=== PATIENT | male | born 1980 | race Caucasian/White ===

== ENCOUNTER 2025-06-02 02:55 | Emergency (ER) | payer SELFPAY ==
[~2025-06-02] VITALS: Ht 167.6 cm; Wt 70.7 kg
[2025-06-02] MEDS: METHYLPREDNISOLONE SOD SUCC 125MG/2ML (ACT-O-VIAL) IV ONE (03:31)
[2025-06-02] MEDS: ALBUTEROL (0.083%) 2.5MG/3ML NEB HHN ONE (03:37)
[2025-06-02] MEDS: IPRATROPIUM BROMIDE (0.02%) 0.5MG/2.5ML NEB HHN ONE (03:38)
[2025-06-02 03:40] VITALS: PULSE 76; RESP 18; O2SAT 97
[2025-06-02] MEDS ORDERED: ALBUTEROL (0.083%) 2.5MG/3ML NEB HHN NR (04:30)
[2025-06-02] MEDS: IPRATROPIUM/ALBUTEROL 0.5-3(2.5)MG/3ML NEB HHN ONE (05:34)
[2025-06-02 05:36] VITALS: PULSE 80; RESP 21; O2SAT 96
[2025-06-02 05:54] VITALS: BP 123/71; PULSE 81; RESP 21; TEMP 36.7; O2SAT 96
[2025-06-02] MEDS ORDERED: ALBU90AE INH (05:54)
[2025-06-02] MEDS ORDERED: ACET-2708 MT (05:54)
[2025-06-02] MEDS ORDERED: P20 MT (05:54)
== END 2025-06-02 06:04 | disposition home or self-care (01) ==
LOC: ER 02:55 → CMPBEDREQ 08:05
DX: J45.901 Unspecified asthma with (acute) exacerbation (principal)
CPT/HCPCS: 71045; 94640; 93005; 96374; 99285; J2919; Z7610 ×4; 94070; 94664; 98960